=== PATIENT | male | born 2000 | race African-American/Black ===

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

== ENCOUNTER 2024-01-13 16:18 | Emergency (ER) | payer OTHER, SELFPAY ==
--- NOTE | ~2024-01-13 | XR_ITS ---
EXAMINATION: XR LUMBOSACRAL SPINE CLINICAL INFORMATION: Low back pain COMPARISON: None available. TECHNIQUE: Three views of the lumbosacral spine. FINDINGS: The vertebral bodies and posterior elements are normal. The disc spaces are preserved and the vertebral alignment is normal. The paraspinal soft tissues are normal. XR/XR lumbar spine 2-3V IMPRESSION: Unremarkable examination. Electronically signed by: Juanita Fisher MD 01/13/2024 06:37 PM EDT RP
[2024-01-13 16:37] VITALS: BP 146/60; PULSE 74; RESP 18; TEMP 36.6; O2SAT 99; BMI 45.7
--- NOTE | 2024-01-13 16:38 | ED_ITS ---
HPI - General Adult General Chief complaint: Back Pain/Injury Stated complaint: lower back pain Time Seen by Provider: 01/13/24 17:39 Source: patient Mode of arrival: ambulatory Limitations: no limitations History of Present Illness ED Provider: augustina FLYNN narrative: Patient is a 23-year-old male presenting to the emergency department with complaint of lower back pain since yesterday. He reports history of ongoing episodes of low back pain ever since a work-related injury approximately 2 years ago. States symptoms are intermittent since that time. Denies any recent fall or other trauma. Denies radiation of pain to legs but states that at times when he is walking when he steps onto his leg it causes his back pain to worsen. Denies saddle anesthesia or bowel or bladder incontinence. Denies fevers, IV drug use, history of cancer. Has never been to physical therapy for his symptoms. complaint: back pain Onset (ago): day(s) Location: back Radiation: non-radiation Severity: severe Quality: aching Pain Consistency: constant Associated symptoms: denies other symptoms Related Data Previous Rx's ?Medication ?Instructions ?Recorded fluticasone propionate 50 1 spray intranasal BID #16 grams 09/30/20 mcg/actuation nasal spray,suspension (Flonase Allergy Relief) ibuprofen 400 mg tablet 400 mg PO Q6H PRN pain #28 tabs 12/09/20 blood sugar diagnostic (FreeStyle #50 ea 01/25/21 Lite Strips) blood-glucose meter (FreeStyle #1 ea 01/25/21 Lite Meter kit) lancets 28 gauge (FreeStyle #100 ea 01/25/21 Lancets) metformin 500 mg tablet,extended 1,000 mg (2 x 500 mg) PO DAILY #30 01/25/21 release 24 hr tabs cyclobenzaprine 10 mg tablet 10 mg PO TID PRN muscle spasm #14 11/16/21 tabs naproxen 500 mg tablet 500 mg PO BID PRN pain #30 tabs 11/16/21 cyclobenzaprine 10 mg tablet 10 mg PO TID PRN muscle spasm #10 01/13/24 tabs lidocaine 5 % topical patch 1 patch topical DAILY #15 ea 01/13/24 Allergies Allergy/AdvReac Type Severity Reaction Status Date / Time No Known Allergies Allergy Verified 01/13/24 16:39 Review of Systems Review of Systems: as per hpi Yes all other systems are reviewed and are negative Constitutional: Constitutional: Reports as per HPI [facility] Past Medical History Medical History Diabetes mellitus type 2, controlled, without complications DM2 (diabetes mellitus, type 2) Morbid (severe) obesity due to excess calories No known health problems Obesity due to excess calories Surgical History No pertinent past surgical history Family History Family History Mother Diabetes Maternal Grandfather Stroke Social History Social History Household Members: Significant Other Alcohol intake: never Patient Tobacco Use Status: Never used Tobacco Advance Directives: No Advance Directives Information Provided: No Physical Exam ED Vital Signs: Vital Signs - 24 hr 01/13/24 16:37 Temperature 97.8 F Pulse Rate 74 Respiratory Rate 18 Blood Pressure 146/60 H Pulse Oximetry 99 Oxygen Delivery Method Room Air BMI result Body Mass Index 45.7 Vital signs have been reviewed and appear to be correct. Blood pressure normal. Heart rate normal. Respiratory rate normal. Temperature normal. Oxygen saturation normal. Const General: cooperative, healthy appearing and no acute distress Orientation/consciousness: oriented to person, oriented to place, oriented to time and patient oriented x3 Limitations: no limitations HENMT Head: Yes normocephalic and Yes atraumatic Ears: external ears normal General nose exam: Normal external nose present Face and sinus: Yes face symmetric Mouth: oropharynx normal and moist mucous membranes Throat: Yes uvula midline Eyes Pupils: Equal, round and reactive pupils present Neck Neck: Yes normal visual inspection and Yes supple Resp Effort & Inspection: normal respiratory effort and able to speak in complete sentences Auscultation: clear to auscultation bilaterally Cardio Rate: regular rate Rhythm: regular rhythm Heart sounds: S1 normal heart sound present and S2 normal heart sound present GI Palpation (GI): Soft to palpation and nontender Auscultation: normoactive bowel sounds General: Yes no CVA tenderness Back/Spine/Pelvis Back: no CVA tenderness Thoracic/Lumbar Spine: thoracic and lumbar spine normal to inspection, thoraco- lumbar ROM normal, straight leg raise negative bilaterally, pain with thoraco- lumbar ROM, No thoracic spinal tenderness and No lumbar spinal tenderness Pelvis: no pain with anterior-posterior compression and no pain with lateral compression Sacroiliac joints: bilaterally nontender Skin General skin exam: elasticity normal and turgor normal Neuro General: oriented to person, oriented to place, oriented to time, patient oriented x3, gait normal, tone normal, moves all extremities, Normal light touch and pain sensation, no focal motor deficits, CN's II-XI intact bilaterally and deep tendon reflexes 2+ bilaterally Cranial nerves: Yes Equal, round and reactive pupils present Cognition (Neuro): normal cognition Extrem General: Yes full ROM, Yes no pedal edema and Yes no calf tenderness Psych Mental Status: mental status grossly normal Affect: normal affect Thought process: Normal thought process present Course Course Course Narrative: RME performed by Xenia Silva PA-C. Patient is a 23 year old assigned male at presenting to the emergency department with low back pain. Patient states that he woke up this morning and began having low back pain. Patient states that when he walks the pain gets stronger. Detailed physical exam and review of systems are deferred to the otr flatbed driver. Imaging ordered. Patient placed back in the waiting room pending room availability and results. Medications Administered Discontinued Medications Generic Name Dose Route Start Last Admin Trade Name Vanessa PRN Reason Stop Dose Admin Cyclobenzaprine HCl 10 mg 01/13/24 18:04 01/13/24 18:18 Cyclobenzaprine Hcl 10 Mg Tablet PO 01/13/24 18:05 10 mg ONCE ONE Administration Ketorolac Tromethamine 30 mg 01/13/24 18:04 01/13/24 18:16 Ketorolac Tromethamine 30 Mg/Ml Vial IM 01/13/24 18:05 30 mg ONCE ONE Administration Medical Decision Making Medical Decision Making MDM Narrative: Patient is a 23-year-old male presenting to the emergency department with comp laint of lower back pain since yesterday. On exam patient is awake, A+Ox3, VS WNL, afebrile, normal neurological exam without focal deficits, physical exam findings as above. Given reported symptoms and physical exam findings, initial differential includes lumbar strain, lumbar radiculopathy, degenerative disc disease, disc herniation, spinal stenosis, spondylosis. Less likely vertebral fracture. Do not suspect malignancy/mass, SEA, cauda equina/cord compression. X-ray notable for no acute abnormality. My interpretation is in agreement with the radiologist's interpretation. Results discussed with patient all questions answered. Symptoms improved with medication given in ED. Will discharge patient home on muscle relaxer and lidocaine patches. Advised patient to follow-up with PCP as he may require physical therapy to improve his symptoms long-term. Return precautions discussed at bedside. Patient verbalized understanding of and agreement with plan. Differential Diagnosis Differential Diagnoses: The differential diagnosis associated with the presentation includes As per MDM Independent Interpretation I performed an independent interpretation of an: Plain X-Ray Interpretation: No acute abnormality on lumbar x-ray. Radiology Impression Discussion of test interpretation with radiology: I have reviewed the radiologist's reading. Radiologist Impression: XR/XR lumbar spine 2-3V IMPRESSION: Unremarkable examination. External Record Review External record reviewed: Inpatient record, Office record and Outpatient record Prescription Management I considered prescription management with: Pain Medication and Other Discharge Plan Discharge Clinical Impression: Strain of lumbar region Patient Disposition: Home, Self-Care Instructions: Low Back Strain (ED), Acute Low Back Pain (ED), Back Pain (ED), Lower Back Exercises (ED) Additional Instructions: You were evaluated in the emergency department today for back pain. Your evaluation did not show signs of medical conditions requiring emergent intervention at this time. We recommended that you use ibuprofen or Tylenol per package directions every 6 hours as needed for pain. If necessary, you can alternate these medications so that you take one medication every 3 hours. For instance, at noon take ibuprofen, then at 3:00 p.m. take Tylenol, then at 6:00 p.m. take ibuprofen. You have been prescribed a muscle relaxer which you may take every 8 hours as needed for spasms. You have been prescribed 5% topical lidocaine patches which you can wear for up to 12 hours in a 24 hour period. Do not apply heat directly over the patches. Please schedule an appointment for follow-up with your primary care physician this week for further evaluation of your symptoms. Return to the emergency department if you experience worsening back pain, difficulty walking, fevers, numbness, tingling, incontinence, groin numbness or tingling, or any other concerning symptoms. Prescriptions: New cyclobenzaprine 10 mg tablet 10 mg PO TID PRN (Reason: muscle spasm) Qty: 10 0RF lidocaine 5 % adhesive patch,medicated 1 patch topical DAILY Qty: 15 0RF Rx Instructions: leave on most painful area for up to 12 hrs No Action fluticasone propionate [Flonase Allergy Relief] 50 mcg/actuation spray,suspension 1 spray intranasal BID Qty: 16 0RF Rx Instructions: administer into each nostril ibuprofen 400 mg tablet 400 mg PO Q6H PRN (Reason: pain) Qty: 28 0RF naproxen 500 mg tablet 500 mg PO BID PRN (Reason: pain) Qty: 30 0RF cyclobenzaprine 10 mg tablet 10 mg PO TID PRN (Reason: muscle spasm) Qty: 14 0RF metformin 500 mg tablet extended release 24 hr 1,000 mg PO DAILY Qty: 30 6RF (DME) FreeStyle Lite Strips Strip See Rx Instructions .ROUTE .MEDSUPPLY Qty: 50 11RF Rx Instructions: As directed once a day (DME) blood-glucose meter [FreeStyle Lite Meter] Kit See Rx Instructions .ROUTE .MEDSUPPLY Qty: 1 0RF Rx Instructions: To test bg once a day (DME) lancets [FreeStyle Lancets] 28 gauge misc See Rx Instructions .ROUTE .MEDSUPPLY Qty: 100 6RF Rx Instructions: once a day Print Language: Sinhala
[2024-01-13] MEDS: Ketorolac Tromethamine 30 MG/ML VIAL IM (18:16)
[2024-01-13] MEDS: Cyclobenzaprine HCl 10 MG TABLET PO (18:18)
[2024-01-13 18:49] VITALS: BP 146/60; PULSE 74; RESP 18; TEMP 36.6; O2SAT 99
== END 2024-01-13 18:49 | disposition home or self-care (01) ==
PROVIDERS: Emergency Provider Emergency Medicine Emergency Medical Services; PCP Physician Assistant
DX: M54.50 Low back pain, unspecified (principal); E11.9 Type 2 diabetes mellitus without complications; S39.012A Strain of muscle, fascia and tendon of lower back, initial encounter; X58.XXXA Exposure to other specified factors, initial encounter; Y93.9 Activity, unspecified; Y92.9 Unspecified place or not applicable; Y99.9 Unspecified external cause status
CPT/HCPCS: 72100; 96372; 99283; 99284; J1885

== ENCOUNTER 2024-04-30 11:47 | Emergency (ER) | payer OTHER, SELFPAY ==
--- NOTE | ~2024-04-30 | XR_ITS ---
EXAMINATION: XR CHEST 2 VIEWS HISTORY: cough COMPARISON: Comparison is made with the prior examination dated 09/26/2020. FINDINGS: PA and lateral views of the chest are submitted. The lungs are expanded and clear. There is no pleural effusion, pneumothorax, or pulmonary vascular congestion. The heart is normal in size. The bones are intact. XR/XR chest 2V IMPRESSION: No acute cardiopulmonary abnormality. Electronically signed by: Ganesh Marie MD 04/30/2024 12:11 PM [facility]
[2024-04-30 11:52] VITALS: BP 130/88; PULSE 105; O2SAT 97
[2024-04-30 11:54] VITALS: BP 129/69; PULSE 98; RESP 18; TEMP 37.3; O2SAT 95
[2024-04-30 11:58] VITALS: BP 129/69; PULSE 96; RESP 18; TEMP 37.3; O2SAT 98; BMI 23.1
--- NOTE | 2024-04-30 11:59 | ED_ITS ---
HPI - URI/Sore Throat General Chief Complaint: Upper Respiratory Symptoms Stated Complaint: HEADACHE,COUGH,SORE THROAT Time Seen by Provider: 04/30/24 11:57 Source: patient and EMS Mode of arrival: EMS Limitations: no limitations History of Present Illness ED Provider: Mimi Felipe PA-C HPI Narrative: 24 yo male with history of obesity, DM2 presents to the ER from home via EMS for evaluation of headache, sore throat and cough. He states his cough started last week but has been mild. His symptoms got a lot worse yesterday and then even worse this morning. He reported severe headache and sore throat today. He is able to eat and drink well. No vision changes, weakness, numbness, tingling, abdominal pain, N/V/D. His son is also sick at home. He reports subjective fevers as well. MD elicited complaint: fever, cough, sore throat and other (headache) Onset (ago): day(s) Consistency: progressively worsening Severity: moderate Able to tolerate fluids by mouth: Yes Exacerbating factors: swallowing Relieving factors: nothing Context: sick contacts Associated symptoms: fever, myalgias, headache, sore throat and cough Treatments prior to arrival: none Related Data Previous Rx's ?Medication ?Instructions ?Recorded fluticasone propionate 50 1 spray intranasal BID #16 grams 09/30/20 mcg/actuation nasal spray,suspension (Flonase Allergy Relief) ibuprofen 400 mg tablet 400 mg PO Q6H PRN pain #28 tabs 12/09/20 blood sugar diagnostic (FreeStyle #50 ea 01/25/21 Lite Strips) blood-glucose meter (FreeStyle #1 ea 01/25/21 Lite Meter kit) lancets 28 gauge (FreeStyle #100 ea 01/25/21 Lancets) metformin 500 mg tablet,extended 1,000 mg (2 x 500 mg) PO DAILY #30 01/25/21 release 24 hr tabs cyclobenzaprine 10 mg tablet 10 mg PO TID PRN muscle spasm #14 11/16/21 tabs naproxen 500 mg tablet 500 mg PO BID PRN pain #30 tabs 11/16/21 cyclobenzaprine 10 mg tablet 10 mg PO TID PRN muscle spasm #10 01/13/24 tabs lidocaine 5 % topical patch 1 patch topical DAILY #15 ea 01/13/24 Allergies Allergy/AdvReac Type Severity Reaction Status Date / Time No Known Allergies Allergy Verified 04/30/24 11:59 Review of Systems Review of Systems: Yes all other systems are reviewed and are negative [facility] Past Medical History Medical History Diabetes mellitus type 2, controlled, without complications DM2 (diabetes mellitus, type 2) Morbid (severe) obesity due to excess calories No known health problems Obesity due to excess calories Surgical History No pertinent past surgical history Family History Family History Mother Diabetes Maternal Grandfather Stroke Social History Social History Household Members: Significant Other Alcohol intake: never Patient Tobacco Use Status: Never used Tobacco Advance Directives: No Advance Directives Information Provided: Yes Physical Exam Vital Signs: Vital Signs: Last Vital Signs Temp 99.1 F 04/30/24 11:58 Pulse 96 04/30/24 11:58 Resp 18 04/30/24 11:58 BP 129/69 04/30/24 11:58 Pulse Ox 98 04/30/24 11:58 O2 Del Method Room Air 04/30/24 11:58 BMI result Body Mass Index 23.1 Appearance: Alert. Oriented X3. No acute distress. Head: normocephalic, atraumatic. Eyes: Pupils equal, round and reactive to light. ENT: Pharynx normal. + tonsillar swelling without exudate. normal voice. Neck: Normal inspection. Neck supple. CVS: Normal heart rate and rhythm. Pulses normal. Respiratory: No respiratory distress. Breath sounds normal. Abdomen: Soft and nontender. +BS x4 Skin: Skin warm and dry. Normal skin color. Normal skin turgor. No rashes. Extremities: No lower extremity edema. No joint swelling. Neuro/psych: Oriented X 3. Nonfocal. Normal speech and cognition. Medications Administered Discontinued Medications Generic Name Dose Route Start Last Admin Trade Name Freq PRN Reason Stop Dose Admin Ketorolac Tromethamine 30 mg 04/30/24 11:57 02/06/25 12:28 Ketorolac Tromethamine 30 Mg/Ml Vial IM 04/30/24 11:58 30 mg ONCE ONE Administration Medical Decision Making Medical Decision Making [facility] Narrative: 24 yo diabetic male presenting with headache, cough, sore throat. VSS. PE unremarkable. strep negative. viral PCR +flu. CXR clear. given toradol with improvement in pain. stable for d/c home with supportive care. Differential Diagnosis Differential Diagnoses: The differential diagnosis associated with the presentation includes strep, covid, flu, rsv, other viral syndrome, bronchitis, pneumonia, no evidence of peritonsillar abcsess or retropharyngeal abscess Lab Data [facility] Lab Attestation statement: I reviewed the patient's lab results. Labs: Lab Results 04/30/24 Range/Units 12:27 Influenza Type A (PCR) POSITIVE A (Negative) Influenza Type B (PCR) NEGATIVE (Negative) RSV RNA Qual (PCR) NEGATIVE (Negative) SARS-CoV-2 RNA (RT-PCR) NEGATIVE (Negative) S. pyogenes GrpA GRISELDA Negative (Negative) Independent Interpretation I performed an independent interpretation of an: Plain X-Ray Interpretation: no focal infiltrate or effusion Radiology Impression Discussion of test interpretation with radiology: I have reviewed the radiologist's reading. Radiologist Impression: XR/XR chest 2V IMPRESSION: No acute cardiopulmonary abnormality. External Record Review External record reviewed: Outpatient record, Prior outpatient labs and Prior outpatient radiology Prescription Management I considered prescription management with: Pain Medication and Antiviral Chronic Conditions Patient?s care impacted by: Diabetes Critical Care Time Critical Care Time Critical Care Time: No Discharge Plan Discharge Clinical Impression: Influenza Patient Disposition: Home, Self-Care Instructions: Influenza (ED) Additional Instructions: You were found to be Influenza A POSITIVE today. Treatment is rest and supportive care. Your chest x-ray and oxygen levels were normal. Rest. Drink plenty of fluids. Do not go out in public while you are not feeling well. Take over the counter cold/flu medications as needed for your symptoms. Take Tylenol and/or Motrin as needed for fevers and body aches. Follow up with your doctor as needed. If you develop new or worsening symptoms call 911 or come back to the ER for further evaluation. Prescriptions: No Action fluticasone propionate [Flonase Allergy Relief] 50 mcg/actuation spray,suspension 1 spray intranasal BID Qty: 16 0RF Rx Instructions: administer into each nostril ibuprofen 400 mg tablet 400 mg PO Q6H PRN (Reason: pain) Qty: 28 0RF naproxen 500 mg tablet 500 mg PO BID PRN (Reason: pain) Qty: 30 0RF cyclobenzaprine 10 mg tablet 10 mg PO TID PRN (Reason: muscle spasm) Qty: 14 0RF cyclobenzaprine 10 mg tablet 10 mg PO TID PRN (Reason: muscle spasm) Qty: 10 0RF lidocaine 5 % adhesive patch,medicated 1 patch topical DAILY Qty: 15 0RF Rx Instructions: leave on most painful area for up to 12 hrs metformin 500 mg tablet extended release 24 hr 1,000 mg PO DAILY Qty: 30 6RF (DME) FreeStyle Lite Strips Strip See Rx Instructions .ROUTE .MEDSUPPLY Qty: 50 11RF Rx Instructions: As directed once a day (DME) blood-glucose meter [FreeStyle Lite Meter] Kit See Rx Instructions .ROUTE .MEDSUPPLY Qty: 1 0RF Rx Instructions: To test bg once a day (DME) lancets [FreeStyle Lancets] 28 gauge misc See Rx Instructions .ROUTE .MEDSUPPLY Qty: 100 6RF Rx Instructions: once a day Stand Alone Forms: Work/School Release Print Language: Estonian
[2024-04-30] MEDS: Ketorolac Tromethamine 30 MG/ML VIAL IM (12:28)
[2024-04-30 12:42] LABS: IDNOW Serial# 6674DD1D; Strep A Nucleic Acid Negative (Negative)
[2024-04-30 13:13] LABS: Influenza A PCR POSITIVE (Negative); Influenza B PCR NEGATIVE (Negative); Resp Syncy Virus RNA Qual PCR NEGATIVE (Negative); SARS COV2 PCR INHOUSE NEGATIVE (Negative)
[2024-04-30 13:39] VITALS: BP 127/69; PULSE 89; RESP 16; TEMP 36.8; O2SAT 97
[2024-04-30 13:48] VITALS: BP 127/69; PULSE 89; RESP 16; TEMP 36.8; O2SAT 97
== END 2024-04-30 13:51 | disposition home or self-care (01) ==
PROVIDERS: Physician Assistant; Emergency Provider Emergency Medicine
DX: J10.1 Influenza due to other identified influenza virus with other respiratory manifestations (principal); R51.9 Headache, unspecified; R05.9 Cough, unspecified; M79.10 Myalgia, unspecified site; Z03.818 Encounter for observation for suspected exposure to other biological agents ruled out
CPT/HCPCS: 0241U; 71046; 87651; 96372; 99283; 99284; J1885

== ENCOUNTER → 2024-04-30 11:58 | Outpatient (BNV) | payer OTHER, SELFPAY | PROVIDERS: Emergency Provider Emergency Medicine; Visit Provider Radiology Diagnostic Radiology | DX: R05.9 Cough, unspecified (principal) | CPT/HCPCS: 71046 ==

== ENCOUNTER 2024-05-04 21:22 | Emergency (ER) | payer OTHER, SELFPAY ==
[2024-05-04 21:45] VITALS: BP 152/61; PULSE 89; RESP 18; TEMP 36.6; O2SAT 99; BMI 44.4
--- NOTE | 2024-05-05 03:23 | ED.GENADULT ---
HPI - General Adult General Chief complaint: Upper Respiratory Symptoms Stated complaint: Flu + 4days ago, still vomiting Time Seen by Provider: 05/05/24 02:56 Source: patient Limitations: no limitations History of Present Illness ED Provider: Leonie Johnston PA-C HPI narrative: 24-year-old male presents requesting a work note. Patient tested positive for influenza a on March 30, he received a work note, he is still feeling poorly still with nausea vomiting. No new symptoms Related Data Previous Rx's ?Medication ?Instructions ?Recorded fluticasone propionate 50 1 spray intranasal BID #16 grams 09/30/20 mcg/actuation nasal spray,suspension (Flonase Allergy Relief) ibuprofen 400 mg tablet 400 mg PO Q6H PRN pain #28 tabs 12/09/20 blood sugar diagnostic (FreeStyle #50 ea 01/25/21 Lite Strips) blood-glucose meter (FreeStyle #1 ea 01/25/21 Lite Meter kit) lancets 28 gauge (FreeStyle #100 ea 01/25/21 Lancets) metformin 500 mg tablet,extended 1,000 mg (2 x 500 mg) PO DAILY #30 01/25/21 release 24 hr tabs cyclobenzaprine 10 mg tablet 10 mg PO TID PRN muscle spasm #14 11/16/21 tabs naproxen 500 mg tablet 500 mg PO BID PRN pain #30 tabs 11/16/21 cyclobenzaprine 10 mg tablet 10 mg PO TID PRN muscle spasm #10 01/13/24 tabs lidocaine 5 % topical patch 1 patch topical DAILY #15 ea 01/13/24 ondansetron HCl 4 mg tablet 4 mg PO Q8H PRN nausea and 05/05/24 vomiting #10 tabs Allergies Allergy/AdvReac Type Severity Reaction Status Date / Time No Known Allergies Allergy Verified 05/04/24 21:47 Review of Systems Review of Systems: Yes all other systems are reviewed and are negative Constitutional: Constitutional: Reports fatigue, Reports fever(s) and Reports malaise ENT: Reports nasal congestion Cardiovascular: Cardiovascular: Denies chest pain Respiratory: Respiratory: Reports cough Gastrointestinal: Gastrointestinal: Denies abdominal pain, Denies diarrhea, Reports nausea and Reports vomiting Endocrine: Endocrine: Reports fatigue PMFSH Past Medical History Attestation statement: The following information was validated with the patient. Medical History Diabetes mellitus type 2, controlled, without complications DM2 (diabetes mellitus, type 2) Morbid (severe) obesity due to excess calories No known health problems Obesity due to excess calories Surgical History No pertinent past surgical history Family History Family History Mother Diabetes Maternal Grandfather Stroke Social History Social History Household Members: Significant Other Alcohol intake: never Patient Tobacco Use Status: Never used Tobacco Advance Directives: No Do you have a plan to hurt others: No Plan Physical Exam ED Vital Signs: Vital Signs - 24 hr 05/04/24 21:45 Temperature 97.9 F Pulse Rate 89 Respiratory Rate 18 Blood Pressure 152/61 H Pulse Oximetry 99 Oxygen Delivery Method Room Air BMI result Body Mass Index 44.4 Const Other: Alert Orientation/consciousness: patient oriented x3 Resp Effort & Inspection: normal respiratory effort Cardio Other: Normal peripheral perfusion Skin Other: Warm dry no rash Neuro General: patient oriented x3, gait normal, no focal motor deficits and CN's II-XI intact bilaterally Psych Other: Calm cooperative Medical Decision Making Medical Decision Making MDM Narrative: 24-year-old male presents requesting a work note. Patient tested positive for influenza a on March 30, he received a work note, he is still feeling poorly still with nausea vomiting. No additional symptom Problem known flu History: Per patient I have considered the following differential diagnoses: Prolonged viral syndrome Plan: We will send him with a work no and a script for Zofran Discharge Plan Discharge Clinical Impression: Influenza A Patient Disposition: Home, Self-Care Instructions: Influenza (ED) Additional Instructions: See home care instructions, uses Zofran as needed. Follow up with your primary care provider. Prescriptions: New ondansetron HCl 4 mg tablet 4 mg PO Q8H PRN (Reason: nausea and vomiting) Qty: 10 0RF No Action fluticasone propionate [Flonase Allergy Relief] 50 mcg/actuation spray,suspension 1 spray intranasal BID Qty: 16 0RF Rx Instructions: administer into each nostril ibuprofen 400 mg tablet 400 mg PO Q6H PRN (Reason: pain) Qty: 28 0RF naproxen 500 mg tablet 500 mg PO BID PRN (Reason: pain) Qty: 30 0RF cyclobenzaprine 10 mg tablet 10 mg PO TID PRN (Reason: muscle spasm) Qty: 14 0RF cyclobenzaprine 10 mg tablet 10 mg PO TID PRN (Reason: muscle spasm) Qty: 10 0RF lidocaine 5 % adhesive patch,medicated 1 patch topical DAILY Qty: 15 0RF Rx Instructions: leave on most painful area for up to 12 hrs metformin 500 mg tablet extended release 24 hr 1,000 mg PO DAILY Qty: 30 6RF (DME) FreeStyle Lite Strips Strip See Rx Instructions .ROUTE .MEDSUPPLY Qty: 50 11RF Rx Instructions: As directed once a day (DME) blood-glucose meter [FreeStyle Lite Meter] Kit See Rx Instructions .ROUTE .MEDSUPPLY Qty: 1 0RF Rx Instructions: To test bg once a day (DME) lancets [FreeStyle Lancets] 28 gauge misc See Rx Instructions .ROUTE .MEDSUPPLY Qty: 100 6RF Rx Instructions: once a day Stand Alone Forms: Work/School Release Print Language: Vietnamese
[2024-05-05 03:44] VITALS: BP 123/67; PULSE 69; RESP 16; TEMP 36.3; O2SAT 98
[2024-05-05] MEDS: Ondansetron ODT 4 MG TAB.RAPDIS TRANSLINGU (03:46)
[2024-05-05 03:49] VITALS: O2SAT 96
--- NOTE | 2024-05-05 03:50 | PC.NURSE ---
medicated per mar, reviewed discharge instructions with pt, pt verbalized understanding, no sign of respiratory distress, pt had a steady gait upon discharge.
[2024-05-05 03:53] VITALS: BP 123/67; PULSE 69; RESP 16; TEMP 36.3
== END 2024-05-05 03:53 | disposition home or self-care (01) ==
PROVIDERS: Emergency Provider Internal Medicine
DX: J10.1 Influenza due to other identified influenza virus with other respiratory manifestations (principal)
CPT/HCPCS: 99283; 99284

== ENCOUNTER 2024-11-08 12:11 | Emergency (ER) | payer OTHER, SELFPAY ==
[2024-11-08 12:17] VITALS: BP 160/83; PULSE 66; RESP 17; TEMP 36.3; O2SAT 99; BMI 44.7
--- NOTE | 2024-11-08 12:17 | ED_ITS ---
[facility] - General Adult General Chief complaint: Headache Stated complaint: Headache since yesterday 2pm Time Seen by Provider: 11/08/24 19:29 Source: patient Mode of arrival: ambulatory Limitations: no limitations History of Present Illness ED Provider: HPI narrative: Frontal headache, this is recurrent, no atypical features for him no fevers or chills no nausea no ongoing vomiting, he states that at some point his glasses broke and he stopped using them. Related Data Previous Rx's ?Medication ?Instructions ?Recorded fluticasone propionate 50 1 spray intranasal BID #16 g dell 09/30/20 mcg/actuation nasal spray,suspension (Flonase Allergy Relief) ibuprofen 400 mg tablet 400 mg PO Q6H PRN pain #28 t abs 12/09/20 blood sugar diagnostic (FreeStyle #50 ea 01/25/21 Lite Strips) blood-glucose meter (FreeStyle #1 ea 01/25/21 Lite Meter kit) lancets 28 gauge (FreeStyle #100 ea 01/25/21 Lancets) metformin 500 mg tablet,extended 1,000 mg (2 x 500 mg) PO DAILY #30 01/25/21 release 24 hr tabs cyclobenzaprine 10 mg tablet 10 mg PO TID PRN muscle s pasm #14 11/16/21 tabs naproxen 500 mg tablet 500 mg PO BID PRN pain #30 t abs 11/16/21 cyclobenzaprine 10 mg tablet 10 mg PO TID PRN muscle s pasm #10 01/13/24 tabs lidocaine 5 % topical patch 1 patch topical DAILY #15 ea 01/13/24 ondansetron HCl 4 mg tablet 4 mg PO Q8H PRN nausea and 05/05/24 vomiting #10 tabs Allergies Allergy/AdvReac Type Severity Reaction Status Date / Time No Known Allergies Allergy Verified 11/08/24 12:21 Review of Systems Constitutional: Constitutional: Reports as per [facility] Past Medical History Medical History Diabetes mellitus type 2, controlled, without complications DM2 (diabetes mellitus, type 2) Morbid (severe) obesity due to excess calories No known health problems Obesity due to excess calories Surgical History No pertinent past surgical history Family History Family History Mother Diabetes Maternal Grandfather Stroke Social History Social History Household Members: Significant Other Alcohol intake: never Patient Tobacco Use Status: Never used Tobacco Smoked in Last 30 Days: No Use of substances other than those prescribed or required for medical reasons: No Advance Directives: No Advance Directives Information Provided: Yes Do you have a plan to hurt others: No Plan Physical Exam ED Vital Signs: Vital Signs - 24 hr 11/08/24 12:17 11/08/24 19:34 Temperature 97.3 F 97.1 F Pulse Rate 66 77 Respiratory Rate 17 18 Blood Pressure 160/83 H 135/78 Pulse Oximetry 99 97 Oxygen Delivery Method Room Air Room Air BMI result Body Mass Index 44.7 Const Other: * Gen: ?Overall well-appearing patient * HEENT: PERRLA, EOMI, MMM, * Neck: Supple, no LAD * CV: RRR, no obvious murmurs appreciated * Resp: ?No wheezing rales rhonchi no stridor moving air well * Abd: ?Bowel sounds are present, no tenderness no rebound no rigidity * MSK: FROM, strength 5/5 all extremities * Neuro: ?Alert and oriented x3, moving upper and lower extremities symmetrically, no obvious facial asymmetry noted Course Course Course Narrative: Medical screening exam performed. Please refer to detailed history, exam, evaluation, and management by primary provider. Patient with headache, typical of migraine. Took ibuprofen without relief. No other associated symptoms at this time. Medications Administered Discontinued Medications Generic Name Dose Route Start Last Admin Trade Name Freq PRN Reason Stop Dose Admin Acetaminophen/Butalbital/Caffeine 1 tab 11/08/24 19:41 11/08/24 19:49 Butalb/Acetamin/Caff 50/325/40 Tablet PO 11/08/24 19:42 1 tab ONCE ONE Administration Ketorolac Tromethamine 15 mg 11/08/24 19:41 11/08/24 19:49 Ketorolac Tromethamine 15 Mg/Ml Vial IM 11/08/24 19:42 15 mg ONCE ONE Administration Medical Decision Making Medical Decision Making MDM Narrative: Presenting with headache without red flags to suspect infectious etiology, subarachnoid hemorrhage, stroke, the type of headache he is describing actually sounds more like tension headache unlikely related to the fact that he stopped using his glasses and that is why the frequency has not increased, we will medicate and anticipating discharge 21:09 patient re-evaluated, he is feeling much better, discussed glasses she verbalized understanding Differential Diagnosis Differential Diagnoses: The differential diagnosis associated with the presentation includes (Subarachnoid hemorrhage, cavernous venous thrombosis, acute angle closure glaucoma, temporal arteritis, meningitis, migraine headache, tension headache) Lab Data MDM Lab Attestation statement: I reviewed the patient's lab results. Labs: Lab Results 11/08/24 Range/Units 12:37 Influenza Type A (PCR) NEGATIVE (Negative) Influenza Type B (PCR) NEGATIVE (Negative) RSV RNA Qual (PCR) NEGATIVE (Negative) SARS-CoV-2 RNA (RT-PCR) NEGATIVE (Negative) Tests considered The following testing was considered but not selected: CT brain Prescription Management I considered prescription management with: Pain Medication Discharge Plan Discharge Clinical Impression: Recurrent headache Additional Instructions: as discussed, yes making sure you have appropriate glasses will most likely resolve the type of headaches , which I believe are actually tension headaches. Stay well hydrated, and take ibuprofen and Tylenol as needed. Prescriptions: No Action fluticasone propionate [Flonase Allergy Relief] 50 mcg/actuation spray,suspension 1 spray intranasal BID Qty: 16 0RF Rx Instructions: administer into each nostril ibuprofen 400 mg tablet 400 mg PO Q6H PRN (Reason: pain) Qty: 28 0RF naproxen 500 mg tablet 500 mg PO BID PRN (Reason: pain) Qty: 30 0RF cyclobenzaprine 10 mg tablet 10 mg PO TID PRN (Reason: muscle spasm) Qty: 14 0RF cyclobenzaprine 10 mg tablet 10 mg PO TID PRN (Reason: muscle spasm) Qty: 10 0RF lidocaine 5 % adhesive patch,medicated 1 patch topical DAILY Qty: 15 0RF Rx Instructions: leave on most painful area for up to 12 hrs ondansetron HCl 4 mg tablet 4 mg PO Q8H PRN (Reason: nausea and vomiting) Qty: 10 0RF metformin 500 mg tablet extended release 24 hr 1,000 mg PO DAILY Qty: 30 6RF (DME) FreeStyle Lite Strips Strip See Rx Instructions .ROUTE .MEDSUPPLY Qty: 50 11RF Rx Instructions: As directed once a day (DME) blood-glucose meter [FreeStyle Lite Meter] Kit See Rx Instructions .ROUTE .MEDSUPPLY Qty: 1 0RF Rx Instructions: To test bg once a day (DME) lancets [FreeStyle Lancets] 28 gauge misc See Rx Instructions .ROUTE .MEDSUPPLY Qty: 100 6RF Rx Instructions: once a day Stand Alone Forms: Work/School Release Print Language: Togolese
[2024-11-08 14:15] LABS: Resp Syncy Virus RNA Qual PCR NEGATIVE (Negative); SARS COV2 PCR INHOUSE NEGATIVE (Negative)
[2024-11-08 19:34] VITALS: BP 135/78; PULSE 77; RESP 18; TEMP 36.2; O2SAT 97
[2024-11-08] MEDS: Butalb/Acetamin/Caff 50/325/40 TABLET 1 TAB PO (19:49)
[2024-11-08 21:15] VITALS: BP 134/79; PULSE 60; RESP 16; TEMP 36.3; O2SAT 97
[2024-11-08 21:18] VITALS: BP 134/79; PULSE 60; RESP 16; TEMP 36.3; O2SAT 97
== END 2024-11-08 21:19 | disposition home or self-care (01) ==
PROVIDERS: Physician Assistant; Emergency Provider Emergency Medicine
DX: R51.9 Headache, unspecified (principal); E11.9 Type 2 diabetes mellitus without complications; Z03.818 Encounter for observation for suspected exposure to other biological agents ruled out
CPT/HCPCS: 87637; 96372; 99284; J1885

== ENCOUNTER 2024-12-28 19:33 | Emergency (ER) | payer OTHER, SELFPAY ==
[2024-12-28 19:48] VITALS: BP 138/64; PULSE 79; RESP 16; TEMP 36.7; O2SAT 95; BMI 45.1
--- NOTE | 2024-12-28 19:53 | ED_ITS ---
HPI - General Adult General Chief complaint: Wound/Laceration Stated complaint: left arm wound Time Seen by Provider: 12/28/24 20:34 Source: patient Mode of arrival: ambulatory Limitations: no limitations History of Present Illness ED Provider: Xenia Silva PA-C HPI narrative: This is a 24 year old male with a history of diabetes that presents for evaluation of a laceration to his left arm. This occurred around 4 pm today when he was walking through a screen door and it slammed quickly on his arm. He bandaged the area and it stopped bleeding but when he decided to change the bandage, it began bleeding again and he was concerned. He states that he does not know when he has his last TDAP shot was and he believes that he is not up to date. Currently, the bleeding has stopped. Related Data Previous Rx's ?Medication ?Instructions ?Recorded fluticasone propionate 50 1 spray intranasal BID #16 g dell 09/30/20 mcg/actuation nasal spray,suspension (Flonase Allergy Relief) ibuprofen 400 mg tablet 400 mg PO Q6H PRN pain #28 t abs 12/09/20 blood sugar diagnostic (FreeStyle #50 ea 01/25/21 Lite Strips) blood-glucose meter (FreeStyle #1 ea 01/25/21 Lite Meter kit) lancets 28 gauge (FreeStyle #100 ea 01/25/21 Lancets) metformin 500 mg tablet,extended 1,000 mg (2 x 500 mg) PO DAILY #30 01/25/21 release 24 hr tabs cyclobenzaprine 10 mg tablet 10 mg PO TID PRN muscle s pasm #14 11/16/21 tabs naproxen 500 mg tablet 500 mg PO BID PRN pain #30 t abs 11/16/21 cyclobenzaprine 10 mg tablet 10 mg PO TID PRN muscle s pasm #10 01/13/24 tabs lidocaine 5 % topical patch 1 patch topical DAILY #15 ea 01/13/24 ondansetron HCl 4 mg tablet 4 mg PO Q8H PRN nausea and 05/05/24 vomiting #10 tabs Allergies Allergy/AdvReac Type Severity Reaction Status Date / Time No Known Allergies Allergy Verified 12/28/24 19:49 Review of Systems 2 Constitutional: Constitutional: Reports as per HPI Eyes: Eyes: Reports as per HPI ENT: Reports as per HPI Cardiovascular: Cardiovascular: Reports as per HPI Respiratory: Respiratory: Reports as per HPI Gastrointestinal: Gastrointestinal: Reports as per HPI Genitourinary: Genitourinary: Reports as per HPI Musculoskeletal: Musculoskeletal: Reports as per HPI Integumentary/Breasts: Skin/Breast: Reports as per HPI Neurologic: Reports as per HPI Psychiatric: Psychiatric: Reports as per HPI Endocrine: Endocrine: Reports as per HPI Hematologic/Lymphatic: Hematologic/Lymphatic: Reports as per HPI Allergic/Immunologic: Allergic/Immunologic: Reports as per HPI [facility] Past Medical History Attestation statement: The following information was validated with the patient. Source: old records reviewed and nursing notes reviewed Medical History DM2 (diabetes mellitus, type 2) Obesity due to excess calories Diabetes mellitus type 2, controlled, without complications Morbid (severe) obesity due to excess calories No known health problems Surgical History No pertinent past surgical history Family History Family History Mother Diabetes Maternal Grandfather Stroke Social History Social History Household Members: Significant Other Alcohol intake: never Patient Tobacco Use Status: Never used Tobacco Advance Directives: No Advance Directives Information Provided: Yes Physical Exam ED Vital Signs: Vital Signs - 24 hr 12/28/24 19:48 12/28/24 21:13 Temperature 98.0 F 98.0 F Pulse Rate 79 79 Respiratory Rate 16 16 Blood Pressure 138/64 138/64 Pulse Oximetry 95 95 Oxygen Delivery Method Room Air Room Air BMI result Body Mass Index 45.1 Const General: cooperative, no acute distress, alert and awake Nutritional Appearance: well nourished Orientation/consciousness: patient oriented x3 HENMT Head: Yes normal to inspection and Yes atraumatic Ears: hearing grossly normal bilaterally and external ears normal General nose exam: Normal external nose present, no nasal discharge noted and no epistaxis Face and sinus: Yes normal facial exam, No abrasion and No laceration Mouth: no drooling and no muffled voice Eyes General: appearance normal, both eyes and all related structures Periorbital: periorbital findings normal Eyelids: Yes eyelids normal Conjunctivae: conjunctivae normal Pupils: Equal, round and reactive pupils present EOM: EOMs intact bilaterally Neck Neck: Yes normal visual inspection and Yes full ROM Resp Effort & Inspection: normal respiratory effort and able to speak in complete sentences Skin Trauma: laceration (Superficial laceration of left arm 6 cm long 1-2 mm wide. ) Neuro General: patient oriented x3 and moves all extremities Cranial nerves: Yes Equal, round and reactive pupils present Cognition (Neuro): normal cognition Extrem General: Yes full ROM Shoulder/upper arm images: 2 1. 3cm superficial laceration that is not actively bleeding and has no gaping Psych Appearance: grossly normal Mental Status: mental status grossly normal Affect: normal affect Attitude: cooperative Thought process: Normal thought process present Thought content: Normal thought content present Insight: Good insight present (Psych) Course Course Course Narrative: RME: 24 yold male presents to the ED for left forearm injury after hitting arm on door. Patient has a laceration left elbow forearm. Patient states bleeding controlled. Patient to be evaluated in the ED. Medications Administered Discontinued Medications Generic Name Dose Route Start Last Admin Trade Name Fremarti PRN Reason Stop Dose Admin Diphtheria/Tetanus/Acell Pertussis 0.5 ml 12/28/24 20:57 12/28/24 21:13 Diphth,Pertus(Acell),Tet Adult 0.5 Ml Syringe IM 12/28/24 20:58 0.5 ml .ONCE ONE Administration Medical Decision Making Medical Decision Making [facility] Narrative: Patient is a 24 year old assigned male at with a history of DM presenting to the emergency department today with a left upper arm laceration. Patient's physical exam was as noted in the physical exam portion of this note. Patient's wound edges were well approximated and did not need any manual repair. Patient's laceration was very superficial. No evidence of gaping or active bleeding. I explained my physical exam findings to the patient. I answered all questions asked by the patient. Patient was brought up to date on tetanus. I stressed the importance of the patient taking his medication as directed (either prescribed or as the over the counter packaging recommends). I stressed the importance of the patient following up with his primary care provider. I stressed the importance of the patient returning to the emergency department immediately if his symptoms were to worsen or if he were to develop any dizziness, shortness of breath, difficulty breathing, chest pain, blurry vision, loss of vision, nausea, vomiting, abdominal pain, fever, chills, back pain, or any other complaints. Patient verbalized agreement and understanding with this treatment plan and discharge. Differential Diagnosis Differential Diagnoses: The differential diagnosis associated with the presentation includes Laceration Abrasion Admission/Observation Consideration of admission/observation: Escalation of care including admission/observation considered Patient would have been admitted to the hospital had his clinical presentation warranted hospital admission. Prescription Management I considered prescription management with: Antibiotic (I considered prescribing the patient a prophylactic antibiotic however, the patient's mechanism of injury did not warrant that at this time. ) Discharge Plan Discharge Clinical Impression: Laceration Patient Disposition: Home, Self-Care Instructions: Laceration Without Closure (ED) Additional Instructions: Your laceration cannot be closed. Keep the area clean but do NOT soak it. IF you are prescribed home medications and/or you are taking over the counter medications at home - it is very important you continue to do so as prescribed / directed unless told otherwise. Follow up with a primary care provider. Return to the emergency department immediately if your symptoms worsen or if you develop any numbness, tingling, dizziness, shortness of breath, difficulty breathing, chest pain, blurry vision, loss of vision, nausea, vomiting, abdominal pain, fever, chills, back pain, or any other complaints. L If you do not have a primary care provider - call any of the below numbers to establish and follow up with a primary care provider. [facility] ([place]) [phone] [place] [address], [address] [facility] ([address] [place]) [phone] [place] [address], [address] [facility], [address] [facility] ([address] [place]) [phone] [place] [address], [address] [facility], [address] [facility] ([place]) [phone] [place] [address], [address] [facility], [address] [facility] [phone] [address] [facility], [address] Please see the information below about our Patient Portal. If you are not yet enrolled in the [facility] Patient Portal, you will receive an enrollment email invitation following your visit to any [facility] care setting. You may also self-enroll in the Patient Portal by visiting our website: [email or web address] The following information is required to access the Patient Portal: - Your [facility] Medical Record Number - Your personal home email address (must match what is in your electronic medical record, Registration staff can assist with this) - Name - Date of Capabilities of the Patient Portal: - Message some providers - View upcoming appointments - Access your health summary, medical history, and visit history - View current conditions and allergies - View procedure and lab results - View your medications, including guidelines, side effects, and precautions - Complete pre-appointment questionnaires requested by your provider - Ready summary reports of your office visits and procedures To access the Patient Portal Mobile [employer], follow these directions: - Search [employer] in the [employer] Store or [employer] Store - Download the [employer] - Search for [facility] - Enter your login/password Prescriptions: No Action fluticasone propionate [Flonase Allergy Relief] 50 mcg/actuation spray,suspension 1 spray intranasal BID Qty: 16 0RF Rx Instructions: administer into each nostril ibuprofen 400 mg tablet 400 mg PO Q6H PRN (Reason: pain) Qty: 28 0RF naproxen 500 mg tablet 500 mg PO BID PRN (Reason: pain) Qty: 30 0RF cyclobenzaprine 10 mg tablet 10 mg PO TID PRN (Reason: muscle spasm) Qty: 14 0RF cyclobenzaprine 10 mg tablet 10 mg PO TID PRN (Reason: muscle spasm) Qty: 10 0RF lidocaine 5 % adhesive patch,medicated 1 patch topical DAILY Qty: 15 0RF Rx Instructions: leave on most painful area for up to 12 hrs ondansetron HCl 4 mg tablet 4 mg PO Q8H PRN (Reason: nausea and vomiting) Qty: 10 0RF metformin 500 mg tablet extended release 24 hr 1,000 mg PO DAILY Qty: 30 6RF (DME) FreeStyle Lite Strips Strip See Rx Instructions .ROUTE .MEDSUPPLY Qty: 50 11RF Rx Instructions: As directed once a day (DME) blood-glucose meter [FreeStyle Lite Meter] Kit See Rx Instructions .ROUTE .MEDSUPPLY Qty: 1 0RF Rx Instructions: To test bg once a day (DME) lancets [FreeStyle Lancets] 28 gauge misc See Rx Instructions .ROUTE .MEDSUPPLY Qty: 100 6RF Rx Instructions: once a day Stand Alone Forms: Work/School Release Interventions: ED Discharge Assessment Last Done: 12/28/24 21:13 Discharge Date/Time: 12/28/24 21:13 Print Language: [place] Citizen
[2024-12-28 21:13] VITALS: BP 138/64; PULSE 79; RESP 16; TEMP 36.7; O2SAT 95
[2024-12-28] MEDS: Diphth,Pertus(ACell),Tet Adult 0.5 ML SYRINGE IM (21:13)
== END 2024-12-28 21:13 | disposition home or self-care (01) ==
PROVIDERS: Emergency Provider Student in an Organized Health Care Education/Training Program
DX: S41.112A Laceration without foreign body of left upper arm, initial encounter (principal); X58.XXXA Exposure to other specified factors, initial encounter; Y93.89 Activity, other specified; Y92.9 Unspecified place or not applicable; Y99.9 Unspecified external cause status; Z23 Encounter for immunization
CPT/HCPCS: 90471; 90715; 99282; 99284